=== PATIENT | female | born 2000 | race Caucasian/White ===

== ENCOUNTER 2022-08-23 17:42 | Emergency (ER) | payer OTHER ==
[~2022-08-23] VITALS: Ht 157.5 cm; Wt 49.9 kg
--- NOTE | 2022-08-23 18:00 | NUR ---
Received pt 22 yrs female came from home with family c/o lt side chest ( rib pain ) hx fx rips for one yrs no hx trana
--- NOTE | 2022-08-23 18:10 | NUR ---
SEEN BY DR. RANDHAWA
[2022-08-23] MEDS ORDERED: KETOROLAC TROMETHAMINE INJ 30 MG/ML VIAL ONE (18:20)
[2022-08-23] MEDS ORDERED: LIDOCAINE 5% (PATCH) 1 EA PATCH TP ONE (18:20)
[2022-08-23] MEDS: LIDOCAINE 5% (PATCH) 1 EA PATCH TP SCH (18:30)
[2022-08-23] MEDS: KETOROLAC TROMETHAMINE INJ 60 MG/2 ML VIAL IM ONE (18:30)
--- NOTE | 2022-08-23 18:30 | NUR ---
C XRAY DONE AT BED SIDE
--- NOTE | 2022-08-23 18:45 | NUR ---
UA SENT TO LAB
--- NOTE | 2022-08-23 19:10 | NUR ---
REC'D REPORT FROM KAYODE
--- NOTE | 2022-08-23 19:15 | NUR ---
HAND OFF DEYANIRA CLARK
[2022-08-23] MEDS ORDERED: LIDO30AD10 TP (19:19)
--- NOTE | 2022-08-23 19:21 | NUR ---
Patient discharged to home in stable condition. Written and verbal after care instructions given. Patient verbalizes understanding of instruction. Pt ambulatory with a steady gait
[2022-08-23 19:25] VITALS: BP 123/72
== END 2022-08-23 19:21 | disposition home or self-care (01) ==
LOC: ER 17:53
DX: R07.81 Pleurodynia (principal)
CPT/HCPCS: 99283; 71045; 96372; J1885